=== PATIENT | male | born 1950 | race African-American/Black ===

== ENCOUNTER 2017-03-24 09:04 | Emergency (ER) | payer OTHER ==
[~2017-03-24] VITALS: Ht 182.9 cm; Wt 90.0 kg
[2017-03-24 09:06] VITALS: BP 169/91; PULSE 84; RESP 14; TEMP 98.2; O2SAT 97
[2017-03-24] MEDS ORDERED: CIPR-9 PO (09:23)
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
[2017-03-24] MEDS ORDERED: LEVOFLOXACIN 750 MG TAB PO ONE (09:30)
[2017-03-24] MEDS ORDERED: TETANUS/DIPHTHERIA TOXOID ADULT 0.5 ML VIAL IM ONE (09:30)
[2017-03-24] MEDS ORDERED: MEDR4PAK PO (09:41)
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
== END 2017-03-24 10:05 | disposition home or self-care (01) ==
LOC: NEPD 09:04
DX: M25.522 Pain in left elbow (principal)
CPT/HCPCS: 99283